=== PATIENT | female | born 1960 | race Caucasian/White ===

== ENCOUNTER 2018-01-29 11:30 | Inpatient (IN) | payer OTHER ==
[~2018-01-29] VITALS: Ht 160 cm; Wt 52.2 kg
[2018-02-06] MEDS ORDERED: CHOLESTYRAMINE P4 GM PO (12:57)
== END 2018-02-06 15:53 | disposition home or self-care (01) | DRG 330 ==
LOC: O/R 02-03 07:15 → SURH 02-03 07:15
PROVIDERS: Surgery
PROC: 0DN84ZZ Release Small Intestine, Percutaneous Endoscopic Approach (ICD-10-PCS; 2018-02-03)
PROC: 4A1BXSH Monitoring of Gastrointestinal Vascular Perfusion using Indocyanine Green Dye, External Approach (ICD-10-PCS; 2018-02-03)
PROC: 0DTK4ZZ Resection of Ascending Colon, Percutaneous Endoscopic Approach (ICD-10-PCS; principal; 2018-02-03 12:30)
DX: K52.0 Gastroenteritis and colitis due to radiation (principal); K56.51 Intestinal adhesions [bands], with partial obstruction; D64.89 Other specified anemias

== ENCOUNTER → 2019-02-16 | Day surgery (SDC) | payer OTHER ==
[~2019-02-16] MED LIST: CHOLESTYRAMINE P4 GM PO
== END | disposition home or self-care (01) ==
LOC: ADM 02-11 14:00 → AMB-ENDOS 09:33
DX: K52.89 Other specified noninfective gastroenteritis and colitis (principal)